=== PATIENT | male | born 1965 | race Caucasian/White ===

== ENCOUNTER → 2024-10-22 | Outpatient (CLI) | payer OTHER ==
[~2024-10-22] MED LIST: ATOR40TA PO; LISI20 PO; MULVITA PO; VITAMIN D31000 UNI1 PO
== END | disposition home or self-care (01) ==
LOC: LAB SHORT 14:22 → LAB 14:22
DX: J34.89 Other specified disorders of nose and nasal sinuses (principal)
CPT/HCPCS: 88305

== ENCOUNTER 2025-01-22 08:00 | Day surgery (SDC) | payer OTHER ==
[~2025-01-22] VITALS: Ht 175.3 cm; Wt 83.8 kg
[~2025-01-22 08:00] MED LIST changes: +EPINEPhrine HCl 1 MG / ML 30ML Vial ONE; +Lidocaine 1%-Epineph 1:200000 30 ML SDV ONE; +Triamcinolone Inj Susp 40 MG / ML 1ML Vial ONE
[2025-01-22] MEDS ORDERED: Tranexamic Acid 100 ML IV ONE (08:48)
[2025-01-22] MEDS ORDERED: OZEMPIC1 MG/0.72 SQ (08:55)
[2025-01-22] MEDS ORDERED: Lactated Ringer's 1,000 ML IV ONE ×2 (09:09→10:12)
[2025-01-22] MEDS ORDERED: Ondansetron HCl 2 MG / ML 2ML Vial ONE (09:34)
[2025-01-22] MEDS ORDERED: FentaNYL Citrate 50 MCG/ML 2 ML Injection ONE ×2 (09:34→10:17)
[2025-01-22] MEDS ORDERED: Ketorolac Tromethamine 30mg Vial ONE ×2 (09:34→11:46)
[2025-01-22] MEDS ORDERED: propofoL 20 ML IV ONE (09:34)
[2025-01-22] MEDS ORDERED: Rocuronium Bromide 10 MG/ML 5ML Injection IV ONE (09:34)
[2025-01-22] MEDS ORDERED: Dexamethasone Sod Phos 10 MG/ML 1ML VIAL ONE (09:34)
[2025-01-22] MEDS ORDERED: Sugammadex Sodium 200 MG/2ML SDV (100 MG/ML) ONE (11:31)
[2025-01-22 12:11] VITALS: BP 148/96
--- NOTE | 2025-01-22 12:43 | NUR ---
01/22/25 [facility] Shine Juarez PT STATES "DOUBLE VISION" IS DISSAPATING. REQUESTS DISCHARGE HOME. PAIN IS TOLERABLE AT 5/10.
== END 2025-01-22 12:41 | disposition home or self-care (01) ==
LOC: ORSCSDS 08:00
PROVIDERS: Otolaryngology
PROC: 0NT Head and Facial Bones, Resection (ICD-10-PCS; principal; 2025-01-22 09:45)
DX: J32.8 Other chronic sinusitis (principal); J34.89 Other specified disorders of nose and nasal sinuses; E11.22 Type 2 diabetes mellitus with diabetic chronic kidney disease; I12.9 Hypertensive chronic kidney disease with stage 1 through stage 4 chronic kidney disease, or unspecified chronic kidney disease; N18.2 Chronic kidney disease, stage 2 (mild); E78.5 Hyperlipidemia, unspecified; Z79.899 Other long term (current) drug therapy; Z79.85 Long-term (current) use of injectable non-insulin antidiabetic drugs
CPT/HCPCS: 88305; 88311; 88312; C1713; C2625; J0171; J1100; J1885; J2405; J2704; J3010; J3301; J7120

== ENCOUNTER 2025-08-27 06:37 | Day surgery (SDC) | payer OTHER ==
[~2025-08-27] VITALS: Ht 175.3 cm; Wt 78.6 kg
[~2025-08-27 06:37] MED LIST changes: -EPINEPhrine HCl 1 MG / ML 30ML Vial ONE; -Lidocaine 1%-Epineph 1:200000 30 ML SDV ONE; +OZEMPIC1 MG/0.72 SQ; -Triamcinolone Inj Susp 40 MG / ML 1ML Vial ONE
[2025-08-27] MEDS ORDERED: Tranexamic Acid 100 ML IV ONE (07:03)
[2025-08-27] MEDS ORDERED: Lidocaine 1%-Epineph 1:200000 30 ML SDV ONE (08:12)
[2025-08-27] MEDS ORDERED: EPINEPhrine HCl 1 MG / ML 30ML Vial ONE (08:12)
--- NOTE | 2025-08-27 08:19 | NUR ---
08/27/25 0819 GUILLERMINA RANGEL RESTING ON GURNEY, DENIES NEEDS/QUESTIONS. RAILS UP, BRAKES LOCKED, CALL LIGHT IN REACH
[2025-08-27] MEDS ORDERED: FentaNYL Citrate 50 MCG/ML 2 ML Injection ONE (08:29)
[2025-08-27] MEDS ORDERED: Labetalol HCL 5 MG/ML 4ML Injection (Single Dose) ONE (09:09)
[2025-08-27 10:00] VITALS: BP 143/100
--- NOTE | 2025-08-27 10:45 | NUR ---
08/27/25 Rachell Alexander PT'S BP WAS ELEVATED. PT STATED THAT HE TOOK HIS BP MEDICATIONS. PT DENIED CHEST PAIN, NO ORTEGA, AND NO SOB. THIS RN CHANGED THE BP CUFF TO SEE IF THAT HAD ANYTHING TO DO WITH THE SIZE, AND ALSO ADJUSTED IT. ANESTHESIOLOGIST IS AWARE. PT PLEASANT AND COOPERATIVE WITH CARE PROVIDED.
== END 2025-08-27 10:40 | disposition home or self-care (01) ==
LOC: ORSCSDS 06:37
PROVIDERS: Otolaryngology
PROC: 09DR4ZZ Extraction of Left Maxillary Sinus, Percutaneous Endoscopic Approach (ICD-10-PCS; principal; 2025-08-27 08:15)
PROC: 09BT4ZZ Excision of Left Frontal Sinus, Percutaneous Endoscopic Approach (ICD-10-PCS; principal; 2025-08-27 08:15)
DX: J32.4 Chronic pansinusitis (principal); J32.0 Chronic maxillary sinusitis; J32.1 Chronic frontal sinusitis; I12.9 Hypertensive chronic kidney disease with stage 1 through stage 4 chronic kidney disease, or unspecified chronic kidney disease; N18.9 Chronic kidney disease, unspecified; Z79.899 Other long term (current) drug therapy; Z79.85 Long-term (current) use of injectable non-insulin antidiabetic drugs
CPT/HCPCS: 88305; 88311; 88312; C2625; J0165; J2704; J3010